=== PATIENT | female | born 1995 | race Asian ===

== ENCOUNTER 2018-06-24 22:03 | Outpatient (CLI) | payer OTHER | END 2018-06-24 22:04 | disposition critical access hospital (66) | LOC: EMS 22:03 | PROVIDERS: ATTEND Surgery | DX: R46.4 Slowness and poor responsiveness (principal) | CPT/HCPCS: A0425; A0429 ==

== ENCOUNTER 2018-06-24 22:24 | Emergency (ER) | payer OTHER ==
--- NOTE | 2018-06-24 22:32 | ED Physician Documentation ---
History of Present Illness - Stated complaint Stated Complaint: ETOH - History obtained from History obtained from: EMS - History of Present Illness Timing: Unknown - Additonal information Additional information: Patient is [employer]. Per medic report, she was found on the ground in a stairwell with vomitus on and around her. She does not respond to verbal or tactile stimuli, withdraws from painful stimuli Review of Systems Unable to obtain: [facility] PD PAST MEDICAL HISTORY - Past Medical History Other Past Medical History: unknown - Allergies Allergies/Adverse Reactions: Allergies Allergy/AdvReac Type Severity Reaction Status Date / Time No Known Drug Allergies Allergy Verified 06/24/18 22:29 PD ED PE NORMAL - Vitals Vital signs reviewed: Yes - General General: No acute distress, Well developed/nourished, Other (unconscious, unresponsive to verbal, tactile; withdraws (localized) from painful stimuli. no respiratory distress) - HEENT HEENT: Atraumatic, Other (PERRL; no intentional gaze) - Cardiac Cardiac: RRR, No murmur - Respiratory Respiratory: No respiratory distress, Clear bilaterally - Abdomen Abdomen: Non distended - Derm Derm: Normal color, Warm and dry - Extremities Extremities: No deformity - Neuro Eye Opening: To Pain Motor: Localizes to Pain Verbal: None GCS Score: 8 Results - Vitals Vitals: Vital Signs - 24 hr 06/24/18 06/24/18 06/24/18 22:30 23:39 23:52 Temperature 36.7 C Heart Rate 56 L 72 76 Respiratory 16 20 Rate Blood Pressure 94/60 87/56 L 109/69 O2 Saturation 100 100 100 06/25/18 06/25/18 06/25/18 02:40 06:13 09:13 Temperature 98.9 C H 37.6 C H Heart Rate 71 88 70 Respiratory 20 16 15 Rate Blood Pressure 114/90 H 99/62 O2 Saturation 100 100 100 Oxygen O2 Source Room air - Labs Labs: Laboratory Tests 06/24/18 06/24/18 06/24/18 23:15 23:15 23:15 WBC 7.9 RBC 4.45 Hgb 13.9 Hct 42.5 MCV 95.5 MCH 31.2 H MCHC 32.6 RDW 13.7 Plt Count 244 MPV 7.3 L Neut # (Auto) 4.4 Lymph # (Auto) 3.0 Henderson # (Auto) 0.4 Eos # (Auto) 0.0 Baso # (Auto) 0.0 Absolute Nucleated RBC 0.00 Nucleated RBC % 0.1 Sodium 138 Potassium 3.4 L Chloride 109 Carbon Dioxide 18 L Anion Gap 11.0 BUN 11 Creatinine 0.4 Estimated GFR (MDRD) 198 Glucose 95 Calcium 8.7 HCG, Quant < 0.60 Urine Opiates Screen Ur Oxycodone Screen Urine Methadone Screen Ur Propoxyphene Screen Ur Barbiturates Screen Ur Tricyclics Screen Ur Phencyclidine Scrn Ur Amphetamine Screen U Methamphetamines Scrn U Benzodiazepines Scrn Urine Cocaine Screen U Cannabinoids Screen Ethyl Alcohol 282.2 06/25/18 05:04 WBC RBC Hgb Hct MCV MCH MCHC RDW Plt Count MPV Neut # (Auto) Lymph # (Auto) Henderson # (Auto) Eos # (Auto) Baso # (Auto) Absolute Nucleated RBC Nucleated RBC % Sodium Potassium Chloride Carbon Dioxide Anion Gap BUN Creatinine Estimated GFR (MDRD) Glucose Calcium HCG, Quant Urine Opiates Screen NEGATIVE Ur Oxycodone Screen NEGATIVE Urine Methadone Screen NEGATIVE Ur Propoxyphene Screen NEGATIVE Ur Barbiturates Screen NEGATIVE Ur Tricyclics Screen NEGATIVE Ur Phencyclidine Scrn NEGATIVE Ur Amphetamine Screen NEGATIVE U Methamphetamines Scrn NEGATIVE U Benzodiazepines Scrn POSITIVE H Urine Cocaine Screen NEGATIVE U Cannabinoids Screen NEGATIVE Ethyl Alcohol PD MEDICAL DECISION MAKING - ED course Complexity details: reviewed results, re-evaluated patient, considered differential, d/w patient ED course: During ED stay, patient became increasingly agitated; repeatedly trying to get off the stretcher but remained nonverbal and would not respond to instruction to remain on the stretcher. She was very unsteady and was significant fall risk and thus IV ativan given when other measures failed. She did not respond to the ativan and became more agitated. Given 2mg IV ativan. She subsequently verbalized that she needed to urinate. She still was not answering questions, would not follow commands, made no eye contact. Nurses helped patient to bedside commode, but patient urinated on floor. Patient remained very unsteady and two nurses and tech were needed to get patient back into the bed. Four point restraints were then placed for patient safety and 10mg IM zyprexa given. She subsequently became calm and slept. Over the subsequent few hours, she gradually became more awake, alert, communicative and cooperative. I initially ordered CT head early in her stay, but she was too agitated to send to CT (would not have remained still enough for CT). I cancelled the CT head once her mental status had improved to the point of being AAOx3. Departure - Departure Disposition: 01 Home, Self Care Clinical Impression: Alcohol intoxication Qualifiers: Complication of substance-induced condition: with delirium Qualified Code(s): F10.921 - Alcohol use, unspecified with intoxication delirium Condition: Good Instructions: ED Alcohol Intoxication Follow-Up: [facility] [Provider Group] Discharge Date/Time: 06/25/18 09:15
[2018-06-24] MEDS ORDERED: SODIUM CHLORIDE 0.9% 1,000 ML IV STA (22:50)
[2018-06-24 23:22] LABS: BASOPHILS % (AUTO) 0.4 %; EOSINOPHILS % (AUTO) 0.4 %; HGB - HEMOGLOBIN 13.9 g/dL (12.0-16.0); LYMPHOCYTES % (AUTO) 37.8 %; MEAN CORPUSCULAR HEMOGLOBIN 31.2 pg (27.0-31.0); MEAN CORPUSCULAR HGB CONC 32.6 g/dL (32.0-36.0); MEAN CORPUSCULAR VOLUME 95.5 fL (81.0-99.0); MEAN PLATELET VOLUME 7.3 fL (7.9-10.8); MONOCYTES # (AUTO) 0.4 10^3/uL (0.0-1.0); MONOCYTES % (AUTO) 5.3 %; NEUTROPHILS # (AUTO) 4.4 10^3/uL (1.5-6.6); NEUTROPHILS % (AUTO) 56.1 %; PLT - PLATELET COUNT 244 10^3/uL (130-450); RED BLOOD COUNT 4.45 10^6/uL (4.20-5.40); RED CELL DISTRIBUTION WIDTH 13.7 % (12.0-15.0); WHITE BLOOD COUNT 7.9 x10^3/uL (4.8-10.8)
[2018-06-24 23:34] LABS: CALCIUM 8.7 mg/dL (8.5-10.3); CREATININE 0.4 mg/dL (0.4-1.0)
[2018-06-24] MEDS ORDERED: LORazepam 2 MG/ML VIAL ONE (23:34)
[2018-06-24] MEDS ORDERED: LORazepam 2 MG/ML VIAL IVP STA ×2 (23:34→23:56)
[2018-06-24] MEDS ORDERED: SODIUM CHLORIDE 0.9% 1,000 ML IV ONE (23:51)
[2018-06-25] MEDS ORDERED: OLANZapine 10 MG VIAL IM STA (00:53)
[2018-06-25 05:05] LABS: MUDS CUTOFF CONCENTRATIONS CUTOFF CONC BELOW:
[2018-06-25 05:17] LABS: AMPHETAMINE SCREEN,URINE NEGATIVE (NEGATIVE); COCAINE SCREEN URINE NEGATIVE (NEGATIVE); METHAMPHETAMINES SCREEN, URINE NEGATIVE (NEGATIVE); OPIATE SCREEN, URINE NEGATIVE (NEGATIVE)
[2018-06-25 05:18] LABS: BENZODIAZEPINES SCREEN, URINE POSITIVE (NEGATIVE); METHADONE SCREEN, URINE NEGATIVE (NEGATIVE); OXYCODONE SCREEN, URINE NEGATIVE (NEGATIVE); PROPOXYPHENE SCREEN, URINE NEGATIVE (NEGATIVE); TRICYCLIC ANTIDEPRESSANT,URINE NEGATIVE (NEGATIVE)
[2018-06-25 09:13] VITALS: BP 99/62
== END 2018-06-25 09:15 | disposition home or self-care (01) ==
LOC: ED 22:24
DX: F10.921 Alcohol use, unspecified with intoxication delirium (principal)
CPT/HCPCS: 36415; 80048; 80306; 80320; 84702; 85025; 96361; 96372; 96374; 96376; 99284; 99285; J2060